=== PATIENT | female | born 1955 | race Caucasian/White ===

== ENCOUNTER → 2016-08-05 | Outpatient (CLI) | payer OTHER ==
--- NOTE | 2016-08-05 13:48 | KCIC ---
PQRS Compliance Statement: One or more of the following individualized dose reduction techniques were utilized for this examination: 1. Automated exposure control 2. Adjustment of the mA and/or kV according to patient size 3. Use of iterative reconstruction technique Coronary calcium score CT chest without contrast History: 61-year-old female with family history of CAD. Technique: With retrospective electrocardiogram gating 3 mm thick axial reconstructed noncontrast images of the chest at the level of the coronary arteries was performed. Images were post processed on a [employer] workstation and calcium score calculated using the modified Agatston Janowitz protocol. Findings: Total coronary calcium score is 0. This places the patient in the 0th percentile rank which means that 100% of females between the ages of 60-65 have a higher calcium score than this patient. This is a no identifiable plaque burden and very low cardiovascular disease risk. This is based on the calcium score of 0 of the left main coronary artery, 0 of the left anterior descending artery, score of 0 of the left circumflex artery and score of 0 of the right coronary artery. Noncoronary findings demonstrate a calcified right hilar lymph node. Cardiac size normal, no pericardial effusion. There is mild centrilobular emphysema. There are scattered micronodular and groundglass opacities in the right middle lobe and lingula with mild peribronchial thickening in the right middle lobe. Mild linear scarring in the basilar right lower lobe just above the hemidiaphragm. Mild atelectasis or scarring posterior left lower lobe. Calcified granuloma lateral right lower lobe. No pleural abnormality is seen. IMPRESSION: 1. Patient's total calcium score 0. 2. Scattered micronodular and groundglass opacities in the right middle lobe and lingula. Findings favored to be due to nonspecific infectious/inflammatory process (including nontuberculous mycobacterial infection). Suggest noncontrast CT chest to assess for other pulmonary opacities. Electronically signed by: Juanpablo Bates MD (08/05/2016 1:45 PM)
== END | disposition home or self-care (01) ==
LOC: KCIC CT 09:43
PROVIDERS: ATTEND Family Medicine
DX: R91.8 Other nonspecific abnormal finding of lung field (principal); A31.9 Mycobacterial infection, unspecified; Z82.49 Family history of ischemic heart disease and other diseases of the circulatory system
CPT/HCPCS: 75571

== ENCOUNTER → 2016-09-01 | Outpatient (CLI) | payer OTHER ==
--- NOTE | 2016-09-01 12:41 | KCIC ---
CHEST CT WITH CONTRAST Clinical indications: Lung infiltrates seen on coronary artery calcium score study dated August 05, 2016. TECHNIQUE: After IV infusion of 75 mL of Omnipaque 300, helical CT scanning of the chest was performed. PQRS compliance Statement One or more of the following individualized dose reduction techniques were utilized for this study: 1. Automated exposure control 2. Adjustment of the mA and/or kV according to patient size 3. Use of iterative reconstruction technique COMPARISON: Coronary artery calcium CT study dated August 05, 2016. FINDINGS: Mediastinal lymph nodes are present. The largest lymph nodes are seen in the azygos region measuring 11 mm in size and within the aortopulmonary window region measuring 15 mm in size. Calcified right hilar lymph nodes are seen due to old granulomatous disease.No focal aneurysmal dilatation or dissection of the thoracic aorta is seen. The heart size is normal and no pericardial effusion is seen. No pleural effusion is seen. No pneumothorax is seen. The proximal bronchial tree is patent. Biapical scarring and pleural thickening is seen. Again seen are nodular lung infiltrates within the right middle lobe which have improved. There is a new finding of a small consolidation within the medial segment of the right middle lobe seen on image 101 and series 3. There is a calcified granuloma within the lateral basal segment of the right lower lobe. Just inferior to this nodule, a noncalcified lung nodule is seen in the same area measuring 4 mm. This nodule was seen previously and is slightly smaller in size. Again seen are nodular lung infiltrates within the lingula which have improved. No adrenal mass is seen. No osteolytic process is seen. IMPRESSION: Improving nodular lung infiltrates within the right middle lobe and lingula from the previous study. Residual nodular infiltrates are still present. In addition, there is a new small area of consolidation present within the medial segment of the right middle lobe. Mediastinal lymphadenopathy most likely reactive in nature. Electronically signed by: Mnado Forte MD (09/01/2016 12:37 PM) [id number]
== END | disposition home or self-care (01) ==
LOC: KCIC CT 07:43
PROVIDERS: ATTEND Family Medicine
DX: R91.1 Solitary pulmonary nodule (principal)
CPT/HCPCS: 71260